=== PATIENT | male | born 1945 | race Caucasian/White ===

== ENCOUNTER 2020-01-02 20:20 | Emergency (ER) | payer OTHER ==
[~2020-01-02] VITALS: Ht 182.9 cm; Wt 104.3 kg
[~2020-01-02 20:20] MED LIST: ANTIBIOTIC PO; ASPI325 PO; Advil200 M1 PO; Bactrim Ds Tab1 EACH PO; Flomax0.4 MG PO; Norco 5-325 Ta1 EACH PO; OXYACE5T PO
[2020-01-02 20:49] LABS: BASOPHILS ABSOLUTE AUTO 0.04 K/mm3 (0.00-0.23); BASOPHILS PERCENT AUTO 1 % (0-2); EOSINOPHILS ABSOLUTE AUTO 0.12 K/mm3 (0.00-0.68); EOSINOPHILS PERCENT AUTO 2 % (0-6); Hematocrit 46.9 % (37.0-53.0); Hemoglobin 15.1 g/dL (13.5-17.5); IMMATURE GRAN ABSOLUTE AUTO 0.03 K/mm3 (0.00-0.10); IMMATURE GRAN PERCENT AUTO 0 % (0-1); LYMPHOCYTES ABSOLUTE AUTO 1.24 K/mm3 (0.84-5.20); LYMPHOCYTES PERCENT AUTO 15 % (21-46); MONOCYTES ABSOLUTE AUTO 0.94 K/mm3 (0.16-1.47); MONOCYTES PERCENT AUTO 12 % (4-13); Mean Corpuscular HGB 28.7 pg (26.0-34.0); Mean Corpuscular HGB Conc 32.2 g/dL (31.5-36.5); Mean Corpuscular Volume 89 fL (80-100); Mean Platelet Volume 9.5 fL (9.1-12.4); NEUTROPHILS ABSOLUTE AUTO 5.83 K/mm3 (1.96-9.15); NEUTROPHILS PERCENT AUTO 71 % (41-73); Platelet Count 193 K/mm3 (150-400); RDW Standard Deviation 42.4 fL (35.1-46.3); Red Blood Cell Count 5.26 M/mm3 (4.30-5.90)
[2020-01-02 21:11] LABS: Alanine Aminotransfer (ALT/SGP 47 U/L (12-78); Albumin/Globulin Ratio 1.1 (0.8-1.8); Alk Phos 72 U/L (50-136); Anion Gap 7 mmol/L (6-16); Aspartate Aminotrans (AST/SGOT 27 U/L (12-37); Bilirubin, Total 0.8 mg/dL (0.1-1.0); Blood Urea Nitrogen 14 mg/dL (8-24); Bun/Creatinine Ratio 13.9 (12.0-20.0); CO2, Blood 23 mmol/L (21-32); Chloride, Blood 108 mmol/L (98-108); Creatinine, Blood 1.01 mg/dL (0.60-1.20); Globulin, Blood 3.8 g/dL (2.2-4.0); Glomerular Filtration Rate >60 (60-); Glucose, Blood 128 mg/dL (70-99); Potassium, Blood 4.1 mmol/L (3.5-5.5); Sodium, Blood 138 mmol/L (136-145); Total Protein, Blood 7.8 g/dL (6.4-8.2)
[2020-01-02 21:39] LABS: Source, Urine Clean Catch
[2020-01-02 21:42] LABS: Bilirubin, Urine Neg (Neg); Blood, Urine 5+ (Neg); Glucose Qualitative, Urine Neg (Neg); Ketones, Urine Neg (Neg); Leukocyte Esterase, Urine Neg (Neg); Nitrite, Urine Neg (Neg); Protein, Urine 1+ (Neg); Urobilinogen, Urine NORM (Normal)
[2020-01-02 21:47] LABS: Appearance, Urine Clear (Clear); Color, Urine Yellow (P-Yellow)
[2020-01-02 21:52] LABS: Squamous Epithelial Cells Not Seen /hpf (Few)
[2020-01-02 21:53] LABS: Bacteria Mod /hpf; Hyaline Casts 0-2 /lpf (0-2); Mucus Light (0-Heavy)
[2020-01-02] MEDS ORDERED: ONDA4ODT MM (22:53)
[2020-01-02] MEDS ORDERED: Percocet 5-3251 EACH PO (22:53)
== END 2020-01-02 23:12 | disposition home or self-care (01) ==
LOC: ER 20:20
PROVIDERS: Physician Assistant
DX: N13.2 Hydronephrosis with renal and ureteral calculous obstruction (principal)
CPT/HCPCS: 36415; 74176; 80053; 81001; 83690; 85025; 87086; 96361; 96374; 96375; 99284-25; A9270; A9270-GY; J1885; J2405; J7120

== ENCOUNTER → 2021-05-24 | Outpatient (CLI) | payer OTHER ==
[~2021-05-24] MED LIST changes: +Atarax10 MG PO; +ONDA4ODT MM; +Percocet 5-3251 EACH PO
== END ==
LOC: LAB SHORT 15:33 → LAB 15:33
DX: R82.90 Unspecified abnormal findings in urine (principal); R31.0 Gross hematuria
CPT/HCPCS: 87077; 87086; 87186

== ENCOUNTER → 2022-11-21 | Outpatient (CLI) | payer OTHER ==
[2022-11-21 11:53] LABS: BASOPHILS ABSOLUTE AUTO 0.04 K/mm3 (0.00-0.23); BASOPHILS PERCENT AUTO 0 % (0-2); EOSINOPHILS ABSOLUTE AUTO 0.04 K/mm3 (0.00-0.68); EOSINOPHILS PERCENT AUTO 0 % (0-6); Hematocrit 48.6 % (37.0-53.0); Hemoglobin 16.3 g/dL (13.5-17.5); IMMATURE GRAN ABSOLUTE AUTO 0.05 K/mm3 (0.00-0.10); IMMATURE GRAN PERCENT AUTO 0 % (0-1); LYMPHOCYTES ABSOLUTE AUTO 1.42 K/mm3 (0.84-5.20); LYMPHOCYTES PERCENT AUTO 11 % (21-46); MONOCYTES ABSOLUTE AUTO 1.72 K/mm3 (0.16-1.47); MONOCYTES PERCENT AUTO 13 % (4-13); Mean Corpuscular HGB 29.4 pg (26.0-34.0); Mean Corpuscular HGB Conc 33.5 g/dL (31.5-36.5); Mean Corpuscular Volume 88 fL (80-100); Mean Platelet Volume 9.7 fL (9.1-12.4); NEUTROPHILS ABSOLUTE AUTO 9.76 K/mm3 (1.96-9.15); NEUTROPHILS PERCENT AUTO 75 % (41-73); Platelet Count 208 K/mm3 (150-400); RDW Coefficient Variation 13.2 % (11.7-14.2); RDW Standard Deviation 42.2 fL (35.1-46.3); Red Blood Cell Count 5.54 M/mm3 (4.30-5.90); White Blood Cell Count 13.03 K/mm3 (4.00-11.30)
[2022-11-21 12:36] LABS: Albumin, Blood 4.1 g/dL (3.4-5.0); Bilirubin, Total 1.3 mg/dL (0.1-1.0); Bun/Creatinine Ratio 19.6 (12.0-20.0); Calcium, Blood 9.3 mg/dL (8.5-10.1); Creatinine, Blood 1.12 mg/dL (0.60-1.20); Potassium, Blood 4.2 mmol/L (3.5-5.5); Total Protein, Blood 8.1 g/dL (6.4-8.2)
== END ==
LOC: LAB SHORT 11:47 → LAB 11:47
PROVIDERS: Emergency Medicine
DX: R10.9 Unspecified abdominal pain (principal)
CPT/HCPCS: 80053; 83690; 85025

== ENCOUNTER → 2023-03-02 | Outpatient (CLI) | payer OTHER ==
[2023-03-10 13:12] LABS: BRUSHITE 0.27 ratio (0.00-3.00); CALCIUM, URINE 6.6 mg/dL (Not Estab.); CALCIUM, URINE 92.4 mg/24 hr (0.0-320.0); CHLORIDE URINE 172 (52-264); CITRIC ACID (CITRATE) 399 mg/L (Not Estab.); CITRIC ACID(CITRATE) 559 mg/24 hr (320-1240); CREATININE, URINE 1362.2 mg/24 hr (1000.0-2000.0); CREATININE, URINE 97.3 mg/dL (Not Estab.); MAGNESIUM, URINE 5.8 mg/dL (Not Estab.); MONOSODIUM URATE 1.38 ratio (0.00-4.00); OSMOLALITY, URINE 639 (300-900); SODIUM, URINE 142 mmol/L (Not Estab.); SODIUM, URINE 199 (58-337); STRUVITE 0.01 ratio (0.00-1.00); URIC ACID 1.53 ratio (0.00-1.20); URINE VOLUME 1400 mL/24 hr (800-1800); URINE VOLUME (PRESERVATIVE) 1400 mL/24 hr (800-1800)
== END ==
LOC: LAB SHORT 09:49 → LAB 09:49
PROVIDERS: Urology
DX: N20.0 Calculus of kidney (principal)
CPT/HCPCS: 81003; 81050; 82131; 82140; 82340; 82436; 82507; 82570; 83735; 83935; 83945; 84105; 84133; 84300; 84392; 84560

== ENCOUNTER 2024-03-23 06:03 | Day surgery (SDC) | payer OTHER ==
[~2024-03-23] VITALS: Ht 175.3 cm; Wt 98.0 kg
[2024-03-23] VITALS (15 sets, daily range): BP systolic 105–145; BP diastolic 61–698
[~2024-03-23 06:03] MED LIST changes: +ACET500 PO; +IBUP200 PO; +KETOROLAC TROME10 MG PO
[2024-03-23] MEDS ORDERED: OxyCODONE HCL 10 MG TABCR PO SCH (06:15)
[2024-03-23] MEDS ORDERED: Lactated Ringer's 1,000 ML IV SCH ×2 (06:15→07:45)
[2024-03-23] MEDS ORDERED: CeFAZolin Sodium 2,000 MG in NS 100 ML IV SCH ×2 (06:15→15:00)
[2024-03-23] MEDS ORDERED: Acetaminophen 500 MG Tab PO SCH ×2 (06:15→08:00)
[2024-03-23] MEDS ORDERED: Ropivacaine 0.5% HCl/Pf 123.125 MG,EPINEPHrine HCL 0.25 MG,Ketorolac Tromethamine 15 MG... INFIL SCH (06:15)
[2024-03-23] MEDS ORDERED: Vancomycin HCL 1,000 MG in NS 250 ML IV SCH ×3 (06:15→19:00)
[2024-03-23] MEDS ORDERED: Chlorhexidine Mouth Care 15 ML UDC MT SCH (06:15)
[2024-03-23] MEDS ORDERED: Tranexamic Acid 100 ML IV SCH (06:21)
[2024-03-23] MEDS ORDERED: TAMS.4ER PO (06:28)
[2024-03-23] MEDS ORDERED: propofoL 80 ML IV ONE (07:20)
[2024-03-23] MEDS ORDERED: ePHEDrine Sulfate 50 MG/ML 1ML Injection ONE (07:25)
[2024-03-23] MEDS ORDERED: Phenylephrine HCl 100 MCG/ML-NS 10MLSYR (1MG/10ML) ONE (07:29)
--- NOTE | 2024-03-23 07:29 | NUR ---
History, Chart, Medications and Allergies reviewed before start of procedure. Lungs clear T/O to Auscultation. Pre-Op teaching done. Pt verbalizes understanding. Patient confirms NPO status and agrees with scheduled surgery. Patient reports completing Chlorhexadine shower X2 prior to admission to hospital.
[2024-03-23] MEDS ORDERED: Promethazine HCl 25 MG Tab PO PRN (07:40)
[2024-03-23] MEDS ORDERED: OxyCODONE HCL 5 MG TAB PO PRN ×2 (07:40)
[2024-03-23] MEDS ORDERED: Bisacodyl 10 MG Supp PR PRN (07:45)
[2024-03-23] MEDS ORDERED: DiphenhydrAMINE HCL 25 MG Cap PO PRN (07:45)
[2024-03-23] MEDS ORDERED: Metoclopramide HCl 5MG / ML 2ML Vial IV PRN (07:45)
[2024-03-23] MEDS ORDERED: Ondansetron HCl 2 MG / ML 2ML Vial IV PRN (07:45)
[2024-03-23] MEDS ORDERED: Magnesium Hydroxide Conc 10 ML UDC PO PRN (07:45)
[2024-03-23] MEDS ORDERED: HYDROmorphone HCl/Pf 1MG SYR IV PRN (07:50)
[2024-03-23] MEDS ORDERED: Ketorolac Tromethamine 30mg Vial ONE (08:17)
[2024-03-23] MEDS ORDERED: Tamsulosin HCl 0.4 MG Cap PO SCH (09:00)
[2024-03-23] MEDS ORDERED: Docusate Sodium 100 MG Cap PO SCH (09:00)
[2024-03-23] MEDS ORDERED: Ketorolac Tromethamine 15mg Vial IV SCH (12:00)
[2024-03-23] MEDS ORDERED: NS 250 ML IV PRN (14:35)
--- NOTE | 2024-03-23 16:45 | NUR ---
SHIFT SUMMARY POD 0 R TKA. SANTI WRAP TO KNEE REMAINS CDI WITH POLAR PACK IN PLACE. PT HAS FULL SENSATION POST SPINAL AND HAS WORKED WITH THERAPY TODAY. UP WITH 1 ASSIST USING FWW/GB AND IS WBAT. NAKIA REG DIET. ROXICODOONE/TYLENOL/TORADOL FOR PAIN MANAGEMENT. VSS. CALL LIGHT WITHIN REACH.
[2024-03-24 03:50] VITALS: BP 115/68
--- NOTE | 2024-03-24 04:25 | NUR ---
SHIFT SUMMARY MARC WAS A/O X 4 ON ASSESSMENT. PT ABLE TO AMBULATE W/ 1 ASSIST, VOIDING SPONTANEOUSLY, PAIN MANAGED TO TOLERABLE LEVEL WITH CURRENT MEDS. NO ACUTE EVENTS OR CHANGES TO PT CONDITION. PT DRESSING TO R KNEE APPEARS C/D/I, DISTAL CIRCULATION INTACT. PT RESTING IN BED W CALL LIGHT IN REACH.
[2024-03-24 05:30] LABS: BASOPHILS ABSOLUTE AUTO 0.02 K/mm3 (0.00-0.23); BASOPHILS PERCENT AUTO 0 % (0-2); EOSINOPHILS ABSOLUTE AUTO 0.12 K/mm3 (0.00-0.68); EOSINOPHILS PERCENT AUTO 1 % (0-6); Hematocrit 38.3 % (37.0-53.0); Hemoglobin 12.3 g/dL (13.5-17.5); IMMATURE GRAN ABSOLUTE AUTO 0.03 K/mm3 (0.00-0.10); IMMATURE GRAN PERCENT AUTO 0 % (0-1); LYMPHOCYTES ABSOLUTE AUTO 1.05 K/mm3 (0.84-5.20); LYMPHOCYTES PERCENT AUTO 12 % (21-46); MONOCYTES ABSOLUTE AUTO 1.61 K/mm3 (0.16-1.47); MONOCYTES PERCENT AUTO 19 % (4-13); Mean Corpuscular HGB 28.8 pg (26.0-34.0); Mean Corpuscular HGB Conc 32.1 g/dL (31.5-36.5); Mean Corpuscular Volume 90 fL (80-100); Mean Platelet Volume 9.6 fL (9.1-12.4); NEUTROPHILS ABSOLUTE AUTO 5.69 K/mm3 (1.96-9.15); NEUTROPHILS PERCENT AUTO 67 % (41-73); Platelet Count 142 K/mm3 (150-400); RDW Coefficient Variation 13.5 % (11.7-14.2); RDW Standard Deviation 44.1 fL (35.1-46.3); Red Blood Cell Count 4.27 M/mm3 (4.30-5.90); White Blood Cell Count 8.52 K/mm3 (4.00-11.30)
[2024-03-24 06:05] LABS: Calcium, Blood 8.1 mg/dL (8.5-10.1); Creatinine, Blood 0.82 mg/dL (0.60-1.20); Magnesium, Blood 1.9 mg/dL (1.6-2.4); Potassium, Blood 4.5 mmol/L (3.5-5.5)
[2024-03-24 07:49] VITALS: BP 130/66
[2024-03-24] MEDS ORDERED: Trimethoprim/Sulfamethoxazole DS Tab PO SCH (09:00)
[2024-03-24] MEDS ORDERED: Aspirin 81 MG Chew PO SCH (09:00)
[2024-03-24] MEDS ORDERED: ASPI81CH PO (10:39)
[2024-03-24] MEDS ORDERED: OXYC5 PO (10:41)
[2024-03-24] MEDS ORDERED: SULTRIDS PO (10:42)
--- NOTE | 2024-03-24 11:55 | NUR ---
DISCHARGE PT WORKED w/ THERAPY; MOVING SLOWLY. PAIN WELL CONTROLLED. EATING, DRINKING, & VOIDING WELL. SHRUTI & POLAR PACK SENT w/ PT. ESCORTED OUT VIA W/C.
== END 2024-03-24 11:53 | disposition home or self-care (01) ==
LOC: ORSCMMR 06:03 → ORD 07:30 → SURS 10:46 → ORSCMMR 03-24 11:53
PROVIDERS: Orthopaedic Surgery
PROC: 0SRC0JZ Replacement of Right Knee Joint with Synthetic Substitute, Open Approach (ICD-10-PCS; principal; 2024-03-24)
DX: M17.11 Unilateral primary osteoarthritis, right knee (principal); N18.9 Chronic kidney disease, unspecified; E66.9 Obesity, unspecified; Z68.31 Body mass index [BMI] 31.0-31.9, adult; Z79.82 Long term (current) use of aspirin; Z79.899 Other long term (current) drug therapy
CPT/HCPCS: 36415; 73560-RT; 80048; 83735; 85025; 97110; 97116; 97162; A9270; C1713; C1776; J0171; J0690; J0735; J1885; J2371; J2704; J2795; J3370; J7050; J7120